=== PATIENT | female | born 1955 | race Asian ===

== ENCOUNTER 2023-02-07 18:03 | Observation (INO) | payer MEDICARE, SELFPAY ==
[2023-02-07 18:04] VITALS: BP 245/91; PULSE 75; RESP 18; TEMP 36.6; O2SAT 96; BMI 25.0
--- NOTE | 2023-02-07 18:18 | ECG_ITS ---
APPROVED REPORT Exam: Resting ECG HR:70 bpm ECG Measurements Heart Rate 70 AXES NH 139 P 64 QRSd 94 QRS 95 QT 329 T 41 QTc 350 Conclusion SINUS RHYTHM POSSIBLE RIGHT ATRIAL ENLARGEMENT [0.25mV P-WAVE] LEFT ATRIAL ENLARGEMENT [-0.15mV P-WAVE IN V1/V2] BORDERLINE RIGHT AXIS DEVIATION [QRS AXIS > 90] NONSPECIFIC ST & T-WAVE ABNORMALITY ABNORMAL ECG UNCONFIRMED REPORT Electronically signed by : Delvin Wesley MD 02/08/2023 07:47:40
--- NOTE | 2023-02-07 18:18 | CT_ITS ---
PROCEDURE INFORMATION: Exam: CT Head Without Contrast Exam date and time: 02/07/2023 6:30 PM Age: 67 years old Clinical indication: Pain; Headache; Additional info: Headache, elevated BP TECHNIQUE: Imaging protocol: Computed tomography of the head without contrast. Radiation optimization: All CT scans at this facility use at least one of these dose optimization techniques: automated exposure control; mA and/or kV adjustment per patient size (includes targeted exams where dose is matched to clinical indication); or iterative reconstruction. REPORTING DATA: Count of CT and Cardiac NM exams in prior 12 months: This patient has received 0 known CTs and 0 known cardiac nuclear medicine studies in the 12 months prior to the current study. COMPARISON: No relevant prior studies available. FINDINGS: Brain: Normal. No hemorrhage. Unremarkable white matter. No mass effect. Cerebral ventricles: No ventriculomegaly. Paranasal sinuses: Visualized sinuses are unremarkable. No fluid levels. Mastoid air cells: Visualized mastoid air cells are well aerated. Bones/joints: Unremarkable. No acute fracture. Soft tissues: Unremarkable. IMPRESSION: No acute intracranial abnormality.
--- NOTE | 2023-02-07 18:18 | PC.NURSE ---
DR MORROW AT BEDSIDE AT THIS TIME
--- NOTE | 2023-02-07 18:18 | HMH.EDGENADL ---
Discharge Plan Disposition Patient Disposition: Admitted Condition: Fair Referrals Follow up/Referrals: Provider,Referral, [Primary Care Provider] - See instructions Clinical Impressions Clinical Impression: Hypokalemia, Headache, Hypertensive urgency Discharge ED Provider: Swati Aguayo Adult HPI General Chief complaint: Headache Stated complaint: headache, high blood pressure Time Seen by Provider: 02/07/23 18:10 Mode of Arrival: Ambulatory Source of Information: Patient Limitations: No Limitations History of Present Illness HPI narrative: 67-year-old female presenting to the emergency department with headache and high blood pressure. Symptoms started this morning after she woke up. She developed a dull, throbbing headache. Located all over her head. She checked her blood pressure and it was quite elevated, 190 systolic. She says she does not have a history of high blood pressure. Does not take antihypertensive medication. She has had episodes similar to this before, but none that have lasted this long. She does not sleep well, but denies changes to her sleep habits. Denies changes to diet or exercise. No new medications. She does not take any medications daily. No speech difficulty, vision changes. No numbness, weakness, tingling in arms or legs. No recent illness. No medications prior to arrival Related Data Allergies Allergy/AdvReac Type Severity Reaction Status Date / Time No Known Allergies Allergy Verified 02/07/23 18:35 [facility] Disclaimer: The information contained in this section may have been updated after the patient was seen, as this information can be updated by other users. Medical History (Updated 02/07/23 @ 19:48 by Swati Aguayo DO) Ovarian cyst Uterine polyp Family History (Updated 02/07/23 @ 18:24 by Eloise Kang RN) Other No significant family history Social History (Updated 02/07/23 @ 18:24 by Eloise Kang RN) Smoking Status: Never smoker alcohol intake: never current occupational status: retired Travel in the last 8 weeks: None ROS Obtained: Yes All systems reviewed & no additional complaints except as documented Constitutional Constitutional: Denies chills, Denies fever(s) and Reports headache(s) Eyes Eyes: Denies blind spots and Denies blurry vision ENT Ears, Nose, Mouth, and Throat: Reports headache(s) and Denies sore throat Cardiovascular Cardiovascular: Denies chest pain, Denies dyspnea, Denies edema and Denies palpitations Respiratory Respiratory: Denies cough and Denies dyspnea Gastrointestinal Gastrointestingal: Denies abdominal pain, nausea or vomiting Musculoskeletal Musculoskeletal: Denies arthralgias and Denies myalgias Integumentary/Breasts Skin/Breast: Denies redness and Denies rash Neurologic Neurologic: Reports headache(s) Endocrine Endocrine: Denies palpitations Physical Exam General General appearance: alert and in no apparent distress Head Head exam: atraumatic and normocephalic Eye Eye exam: Present normal appearance; Absent conjunctival redness ENT ENT exam: Present normal exam and mucous membranes moist Respiratory Respiratory exam: Present normal lung sounds bilaterally; Absent respiratory distress or wheezes Cardiovascular Cardiovascular exam: Present regular rate and normal rhythm Abdominal Exam Abdominal exam: Present soft; Absent distention or tenderness Neurological Exam Neurological exam: Present alert, oriented X3 and normal gait Psychiatric Psychiatric exam: Present normal affect and normal mood Skin Skin exam: Present warm and dry Medical Decision Making Medical Records Medical records reviewed: Yes I reviewed the patient's medical records. Per Inquiry Pt receiving controlled substance: No Vital Signs: 02/07/23 18:04 02/07/23 18:51 02/07/23 18:52 Temperature 97.8 F Temperature Source Oral Pulse Rate 85 Pulse Rate [Radial] 75 Respiratory Rate 18 17 Blood Pressu
--- NOTE | 2023-02-07 18:29 | PC.NURSE ---
PT TO CT
[2023-02-07 18:31] LABS: Basophils # 0.1 K/mm3 (0-0.2); Basophils % 0.8 % (0.1-2.0); Eosinophils # 0.2 K/mm3 (0.0-0.4); Eosinophils % 2.1 % (0.1-12.0); Hematocrit 46.2 % (37.0-47.0); Hemoglobin 15.2 g/dL (12.2-16.2); Lymphocytes # 1.9 K/mm3 (0.7-4.5); Lymphocytes % 26.4 % (10-50); Mean Corpuscular HGB Conc 32.8 g/dL (31.8-35.4); Mean Corpuscular Hemoglobin 28.9 pg (27.0-31.2); Mean Corpuscular Volume 87.9 fl (81-99); Mean Platelet Volume 10.8 fl (7.4-10.4); Monocytes # 0.3 K/mm3 (0.1-1.0); Monocytes % 4.2 % (1.7-9.3); Neutrophils # 4.7 K/mm3 (1.8-7.8); Neutrophils % 66.5 % (37.0-80.0); Platelet Count 188 K/mm3 (142-424); Red Blood Count 5.25 M/mm3 (4.20-5.40); Red Cell Distribution Width 13.2 % (11.5-17.5)
--- NOTE | 2023-02-07 18:32 | PC.NURSE ---
PT RETURNED FROM CT
[2023-02-07 18:35] LABS: Chloride 100 mmol/L (98-107); Sodium 144 mmol/L (136-145)
[2023-02-07 18:37] LABS: Blood Urea Nitrogen 7 mg/dl (7-17); Creatinine Clearance Estimated 52 mL/min (50-200)
[2023-02-07 18:38] LABS: Alanine Aminotransferase 31 U/L (12-78); Albumin Level 4.8 g/dl (3.5-5.0); Albumin/Globulin Ratio 1.5 (1.1-1.8); Alkaline Phosphatase 129 U/L (38-126); Anion Gap 14.5 mEq/L (5-15); Aspartate Amino Transferase 42 U/L (14-36); Bilirubin,Total 0.6 mg/dl (0.2-1.3); Calcium 9.5 mg/dl (8.4-10.2); Carbon Dioxide 32 mmol/L (22.0-30.0); Estimated Glomerular Filt Rate 71 ml/min (>60); GFR (African American) 86 ML/MIN (>60); Globulin 3.2 g/dL (1.3-3.2); Glucose 121 mg/dl (74-100)
--- NOTE | 2023-02-07 18:47 | PC.NURSE ---
per rad staff when he send CT vrad stating a approx 71 minute turn around time, notified ER
--- NOTE | 2023-02-07 18:49 | PC.NURSE ---
critical potassium called from lab- notified JAME QUINN
[2023-02-07 18:50] LABS: Potassium 2.5 mmoL/L (3.5-5.1); Troponin I < 0.01 ng/ml (0.00-0.034)
[2023-02-07 18:51] VITALS: BP 237/95; PULSE 85; RESP 17; O2SAT 99
[2023-02-07 18:52] VITALS: BP 211/110
--- NOTE | 2023-02-07 19:01 | PC.NURSE ---
REPEAT B/P 180/91 AFTER 10MG IV LABETALOL
--- NOTE | 2023-02-07 19:39 | PC.NURSE ---
Dr. Aguayo at
--- NOTE | 2023-02-07 19:47 | PC.NURSE ---
Registration notified of admission. Pt assigned to room 202 for HTN and Hypokalemia. Hospitalist. OBS
[2023-02-07 19:55] LABS: Coronavirus 19, PCR Not Detected (NotDetected); Influenza A, PCR Not Detected (NotDetected); Influenza B, PCR Not Detected (NotDetected)
[2023-02-07 20:08] VITALS: BP 154/82; PULSE 68; RESP 18; TEMP 36.7; O2SAT 97; BMI 24.5
--- NOTE | 2023-02-07 20:20 | XR_ITS ---
PROCEDURE INFORMATION: Exam: XR Chest Exam date and time: 02/07/2023 8:19 PM Age: 67 years old Clinical indication: Other: Hypertension; Additional info: New onset hypertension TECHNIQUE: Imaging protocol: Radiologic exam of the chest. Views: 2 views. COMPARISON: No relevant prior studies available. FINDINGS: Lungs: Mild hyperexpansion and hyperlucency with mild diaphragmatic flattening suggesting possible COPD. Pulmonary vasculature grossly normal. Slight interstitial prominence bilaterally, possibly chronic interstitial scarring or bronchitis, less likely interstitial edema or interstitial pneumonitis. No consolidations. There is a 7 mm indeterminate pulmonary nodule projecting in the left mid lung. Recommend nonemergent noncontrast chest CT for further characterization. Pleural spaces: No pleural effusion. No pneumothorax. Heart/Mediastinum: Heart size normal. No tracheal/mediastinal shift. Bones/joints: No acute osseous abnormalities are identified. IMPRESSION: 1. Mild nonspecific interstitial prominence. 2. Suspect COPD. 3. There is a 7 mm indeterminate pulmonary nodule in the left mid lung, recommend nonemergent noncontrast chest CT characterization.
--- NOTE | 2023-02-07 20:33 | PC.NURSE ---
report given to Keri MILIAN
--- NOTE | 2023-02-07 20:36 | PC.NURSE ---
pt requests a full discharge report with all labs and imaging
[2023-02-07 20:37] VITALS: BP 167/73; PULSE 65; RESP 14; TEMP 36.6; O2SAT 97
--- NOTE | 2023-02-07 20:47 | PC.NURSE ---
pt arrived to floor at this time
--- NOTE | 2023-02-07 20:50 | EXP.HP ---
History of Present Illness *Admission Date: 02/07/23 *Reason for visit:: headache, hypertension and hypokalemia *History of present illness: This is a 67-year-old female with no other significant medical history who presented to the emergency department with headache and high blood pressure new onset this morning after she woke up.? She developed a dull, throbbing headache. blood pressure and it was, 190 systolic after patient checked herself.? She says she does not have a history of high blood pressure.? Does not take antihypertensive medication.? She has had episodes similar to this before, but none that have lasted this long.? She does not sleep well, but denies changes to her sleep habits.? Denies changes to diet or exercise.? No new medications.? She does not take any medications daily.? No speech difficulty, vision changes.? No numbness, weakness, tingling in arms or legs.? No recent illness.? No medications prior to arrival. At ER chest x-ray was done, there is normal. EKG was done normal electrolytes was reviewed. Patient with mild hypokalemia. Will be admitted for further management and treatment. [facility] Disclaimer: The information contained in this section may have been updated after the patient was seen, as this information can be updated by other users. Medical History (Updated 02/07/23 @ 21:29 by Jose Eng APRN) Ovarian cyst Uterine polyp Family History (Updated 02/07/23 @ 18:24 by Eloise Kang RN) Other No significant family history Social History (Updated 02/07/23 @ 21:18 by Evita Fortune RN) Smoking Status: Never smoker alcohol intake: never current occupational status: retired Travel in the last 8 weeks: None Review of Systems Review of Systems Review of systems:: pertinent systems reviewed and negative unless documented below Constitutional Constitutional: Reports headache(s) ENT Ears, Nose, Mouth, and Throat: Reports headache(s) *Neurologic Neurologic: Reports headache(s) Meds Home Medications and Allergies Home Medications Medication Instructions Recorded Confirmed Type amlodipine 10 mg tablet 10 mg PO DAILY #90 tabs 02/08/23 Rx hydrochlorothiazide 25 mg tablet 25 mg PO DAILY #90 tabs 02/08/23 Rx potassium chloride 20 mEq 40 meq PO BID 2 days #8 tabs 02/08/23 Rx tablet,extended release(part/cryst) New Prescriptions to Start Prescriptions: amlodipine Mcrae,Hector hydrochlorothiazide Mcrae,Hector potassium chloride Mcrae,Bardolph Allergies Allergy/AdvReac Type Severity Reaction Status Date / Time No Known Allergies Allergy Verified 02/07/23 18:35 Exam Data for Last 24 hours Vital signs and Labs for Last 24 Hours: Temp Pulse Resp BP Pulse Ox 98 F 65 14 167/73 H 99 02/07/23 20:37 02/07/23 20:37 02/07/23 20:37 02/07/23 20:37 02/07/23 18:51 Laboratory Results - last 24 hr 02/07/23 18:22: WBC 7.0, RBC 5.25, Hgb 15.2, Hct 46.2, MCV 87.9, MCH 28.9, MCHC 32.8, RDW 13.2, Plt Count 188, MPV 10.8 H, Neut % (Auto) 66.5, Lymph % (Auto) 26.4, [place] % (Auto) 4.2, Eos % (Auto) 2.1, Baso % (Auto) 0.8, Neut # (Auto) 4.7, Lymph # (Auto) 1.9, [place] # (Auto) 0.3, Eos # (Auto) 0.2, Baso # (Auto) 0.1 02/07/23 18:22: Sodium 144, Potassium 2.5 L*, Chloride 100, Carbon Dioxide 32 H, Anion Gap 14.5, BUN 7, Creatinine 0.80, Estimated Creat Clear 52, Estimated GFR 71, Est GFR ( Amer) 86, Glucose 121 H, Calcium 9.5, Total Bilirubin 0.6, AST 42 H, ALT 31, Alkaline Phosphatase 129 H, Troponin I < 0.01, Total Protein 8.0, Albumin 4.8, Globulin 3.2, Albumin/Globulin Ratio 1.5 02/07/23 19:46: SARS-CoV-2 (PCR) Not detected, Influenza A Untype (PCR) Not detected, Influenza Type B (PCR) Not detected I & O for Last 24 hours: Intake & Output 02/04/23 02/05/23 02/06/23 02/07/23 23:59 23:59 23:59 23:59 Weight 62.142 kg Radiology Reports for the Last 24 Hours: Chest x-ray.
--- NOTE | 2023-02-07 21:10 | PC.NURSE ---
received phone report from minna bottom turner nurse at 2023. patient arrived at 2044 via w/c accompanied by family member. diagnosis: H/A and HTN. admitted to room. oriented to room and equipement.
[2023-02-07 21:49] VITALS: O2SAT 97
[2023-02-07 21:58] LABS: Troponin I 0.01 ng/ml (0.00-0.034)
[2023-02-08] VITALS: BP 197/76; PULSE 66; PULSE 67; RESP 18; TEMP 36.6; O2SAT 97
[2023-02-08 00:59] LABS: Troponin I 0.01 ng/ml (0.00-0.034)
--- NOTE | 2023-02-08 02:01 | PC.NURSE ---
SPOKE WITH SHANNA LOCKE RE BP 197/76. TO PUT IN PRN MED FOR HTN.
[2023-02-08 04:00] VITALS: BP 143/67; PULSE 55; RESP 18; TEMP 36.6; O2SAT 98; BMI 24.7
[2023-02-08 06:18] LABS: Chloride 103 mmol/L (98-107); Sodium 141 mmol/L (136-145)
[2023-02-08 06:20] LABS: Eosinophils # 0.1 K/mm3 (0.0-0.4); Mean Platelet Volume 10.9 fl (7.4-10.4); Red Cell Distribution Width 13.3 % (11.5-17.5)
[2023-02-08 06:21] LABS: Alanine Aminotransferase 25 U/L (12-78); Albumin Level 3.7 g/dl (3.5-5.0); Albumin/Globulin Ratio 1.5 (1.1-1.8); Alkaline Phosphatase 96 U/L (38-126); Anion Gap 12.6 mEq/L (5-15); Aspartate Amino Transferase 33 U/L (14-36); Bilirubin,Total 0.5 mg/dl (0.2-1.3); Blood Urea Nitrogen 7 mg/dl (7-17); Carbon Dioxide 28 mmol/L (22.0-30.0); Cholesterol 187 mg/dl (140-200); Creatinine Clearance Estimated 51 mL/min (50-200); Estimated Glomerular Filt Rate 83 ml/min (>60); GFR (African American) 100 ML/MIN (>60); Globulin 2.5 g/dL (1.3-3.2); Total Protein,Serum 6.2 g/dl (6.3-8.2); Triglycerides 94 mg/dl (30-150); VLDL Cholesterol 19 mg/dL (0-40)
[2023-02-08 06:22] LABS: Calcium 8.4 mg/dl (8.4-10.2); Chol/HDL Ratio 3.2 (1-3.5); Glucose 101 mg/dl (74-100); HDL Cholesterol 58 mg/dl (40-60)
[2023-02-08 06:29] LABS: Potassium 2.6 mmoL/L (3.5-5.1)
[2023-02-08 06:32] LABS: Direct LDL Cholesterol 96.46 mg/dL (100-129)
--- NOTE | 2023-02-08 06:32 | PC.NURSE ---
0630 lab called critical potassium of 2.6. SHANNA LOCKE NOTIFIED.
--- NOTE | 2023-02-08 06:36 | US_ITS ---
FINAL REPORT TECHNIQUE: Ultrasound images of the kidneys and bladder were obtained. CLINICAL HISTORY: hypertensive emergency FINDINGS: The right kidney measures 9 cm in length. It is normal in echogenicity. There is no hydronephrosis. The left kidney measures 9.3 cm in length. It is normal in echogenicity. There is no hydronephrosis. The portions of the liver and spleen which are visualized are unremarkable. IMPRESSION: No hydronephrosis Reviewed, Interpreted and Dictated by Luis Gibbs MD Transcribed by Aleksandra Dunaway Authenticated and [facility]
[2023-02-08 06:38] LABS: Basophils % 0.6 % (0.1-2.0); Eosinophils % 1.3 % (0.1-12.0); Hematocrit 39.6 % (37.0-47.0); Lymphocytes % 33.8 % (10-50); Mean Corpuscular HGB Conc 32.5 g/dL (31.8-35.4); Mean Corpuscular Hemoglobin 28.8 pg (27.0-31.2); Mean Corpuscular Volume 88.6 fl (81-99); Monocytes # 0.3 K/mm3 (0.1-1.0); Monocytes % 5.4 % (1.7-9.3); Neutrophils # 3.5 K/mm3 (1.8-7.8); Neutrophils % 58.8 % (37.0-80.0); Platelet Count 178 K/mm3 (142-424); Red Blood Count 4.47 M/mm3 (4.20-5.40); White Blood Count 5.9 K/mm3 (4.8-10.8)
[2023-02-08 06:39] LABS: Hemoglobin 12.9 g/dL (12.2-16.2)
[2023-02-08 06:49] LABS: Magnesium 1.9 mg/dl (1.6-2.3)
[2023-02-08 08:00] VITALS: PULSE 80
[2023-02-08 08:04] VITALS: BP 135/62; PULSE 75; RESP 18; TEMP 36.8; O2SAT 98
--- NOTE | 2023-02-08 11:26 | PC.NURSE ---
COURTESY ROUND PATIENT AWAKE SITTING ON SIDE OF BED . PATIENT VOICED NO NEEDS AT THIS TIME . ICE WATER REFILLED AND TRASH EMPTIED . CALL LIGHT WITHIN REACH.
[2023-02-08 12:00] VITALS: BP 125/73; PULSE 69; PULSE 73; RESP 16; TEMP 36.6; O2SAT 98
--- NOTE | 2023-02-08 14:33 | EXP.DC.SUM ---
General Admission date:: 02/07/23 Discharge date: 02/08/23 HPI HPI HPI: This is a 67-year-old female with no other significant medical history who presented to the emergency department with headache and high blood pressure new onset this morning after she woke up.? She developed a dull, throbbing headache. blood pressure and it was, 190 systolic after patient checked herself.? She says she does not have a history of high blood pressure.? Does not take antihypertensive medication.? She has had episodes similar to this before, but none that have lasted this long.? She does not sleep well, but denies changes to her sleep habits.? Denies changes to diet or exercise.? No new medications.? She does not take any medications daily.? No speech difficulty, vision changes.? No numbness, weakness, tingling in arms or legs.? No recent illness.? No medications prior to arrival. At ER chest x-ray was done, there is normal. EKG was done normal electrolytes was reviewed. Patient with mild hypokalemia. Will be admitted for further management and treatment. Hospital Course Hospital Course Hospital Course: Patient admitted to hospital with headache and noted to suffer from hypertensive emergency. Patient started on Cardene drip, which was weaned off quickly during hospitalization. 02/08/2023, patient placed on amlodipine 10 mg and hydrochlorothiazide 25 mg, with excellent control of blood pressure by 1400 on 02/08/23. Patient states that headache resolved once blood pressure normotensive. Patient given 80 mill equivalents potassium chloride during hospitalization. Patient discharged home on potassium chloride 40 mg twice daily x2 days to complete potassium repletion. Patient also advised to follow-up with primary care physician within 1 week of hospital discharge. Exam Data for Last 24 hours Vital signs and Labs for Last 24 Hours: Temp Pulse Resp BP Pulse Ox 97.8 F 73 16 125/73 98 02/08/23 12:00 02/08/23 12:00 02/08/23 12:00 02/08/23 12:00 02/08/23 12:00 Laboratory Results - last 24 hr 02/07/23 18:22: WBC 7.0, RBC 5.25, Hgb 15.2, Hct 46.2, MCV 87.9, MCH 28.9, MCHC 32.8, RDW 13.2, Plt Count 188, MPV 10.8 H, Neut % (Auto) 66.5, Lymph % (Auto) 26.4, [place] % (Auto) 4.2, Eos % (Auto) 2.1, Baso % (Auto) 0.8, Neut # (Auto) 4.7, Lymph # (Auto) 1.9, [place] # (Auto) 0.3, Eos # (Auto) 0.2, Baso # (Auto) 0.1 02/07/23 18:22: Sodium 144, Potassium 2.5 L*, Chloride 100, Carbon Dioxide 32 H, Anion Gap 14.5, BUN 7, Creatinine 0.80, Estimated Creat Clear 52, Estimated GFR 71, Est GFR ( Amer) 86, Glucose 121 H, Calcium 9.5, Total Bilirubin 0.6, AST 42 H, ALT 31, Alkaline Phosphatase 129 H, Troponin I < 0.01, Total Protein 8.0, Albumin 4.8, Globulin 3.2, Albumin/Globulin Ratio 1.5 02/07/23 19:46: SARS-CoV-2 (PCR) Not detected, Influenza A Untype (PCR) Not detected, Influenza Type B (PCR) Not detected 02/07/23 21:18: Troponin I 0.01 02/08/23 00:15: Troponin I 0.01 02/08/23 05:56: Magnesium 1.9 02/08/23 05:56: WBC 5.9, RBC 4.47, Hgb 12.9 D, Hct 39.6, MCV 88.6, MCH 28.8, MCHC 32.5, RDW 13.3, Plt Count 178, MPV 10.9 H, Neut % (Auto) 58.8, Lymph % (Auto) 33.8, [place] % (Auto) 5.4, Eos % (Auto) 1.3, Baso % (Auto) 0.6, Neut # (Auto) 3.5, Lymph # (Auto) 2.0, [place] # (Auto) 0.3, Eos # (Auto) 0.1, Baso # (Auto) 0.0 02/08/23 05:56: Sodium 141, Potassium 2.6 L*, Chloride 103, Carbon Dioxide 28, Anion Gap 12.6, BUN 7, Creatinine 0.70, Estimated Creat Clear 51, Estimated GFR 83, Est GFR ( Amer) 100, Glucose 101 H, Calcium 8.4, Total Bilirubin 0.5, AST 33, ALT 25, Alkaline Phosphatase 96, Total Protein 6.2 L, Albumin 3.7 D, Globulin 2.5, Albumin/Globulin Ratio 1.5, Triglycerides 94, Cholesterol 187, LDL Cholesterol Direct 96.46 L, VLDL Cholesterol 19, HDL Cholesterol 58, Cholesterol/HDL Ratio 3.2 I & O for Last 24 hours: Intake & Output 02/05/23 02/06/23 02/07/23 02/08/23 23:59 23:59 23:59 23:59 Intake Total 960 / 2039 1200 / 1200 Output Total 1 / 0 / 0 Balance
--- NOTE | 2023-02-08 15:47 | HMH.PHAINT1 ---
Pharmacy Intervention Comments: DISCHARGE MEDICATION COUNSELING PROVIDED. DISCUSSED THE FOLLOWING NEW MEDICATIONS: -AMLODIPINE (FOR BLOOD PRESSURE, TAKE DAILY, DIZZINESS/LIGHTHEADEDNESS, LOW BP, LOWER LIMB SWELLING POSSIBLE) -HYDROCHLOROTHIAZIDE (FOR BLOOD PRESSURE, DAILY, BEST TAKEN IN THE MORNING TO AVOID NOCTURIA, INCREASE IN URINATION POSSIBLE, DIZZINESS, LIGHTHEADEDNESS POSSIBLE) -POTASSIUM CHLORIDE (SUPPLEMENT, TWICE DAILY, TAKE WITH FOOD TO MINIMIZE GI DISCOMFORT, WATCH FOR MUSCLE PAIN/WEAKNESS, DIZZINESS, FLUTTERING IN CHEST) PATIENT VERBALIZED NO QUESTIONS AT THIS TIME.
--- NOTE | 2023-02-08 15:50 | PC.NURSE ---
Discussed medications and need for follow up appointment in 1 week with PCP to patient's . Explained someone needs to be monitoring her bloodwork and blood pressure closely and it would be beneficial to have a PCP here instead of going through her PCP in [place] which is their original plan. Verbalized understanding. Provided with lists of PCP here.
--- NOTE | 2023-02-09 13:40 | CARE MANAGER ---
Left message for post-discharge phone interview.
--- NOTE | 2023-02-10 11:49 | CARE MANAGER ---
Attempted to contact patient related to hospital discharge x2. No VM option. MAICOL Mcgraw
== END 2023-02-08 15:54 | disposition home or self-care (01) ==
LOC: ER 19:48 → 2ND 19:58
PROVIDERS: Nurse Practitioner Family; Admitting Provider Internal Medicine; Emergency Provider Emergency Medicine; PCP Internal Medicine; Visit Provider Internal Medicine
DX: I10 Essential (primary) hypertension (principal); E87.6 Hypokalemia; G44.209 Tension-type headache, unspecified, not intractable; I16.0 Hypertensive urgency; R51.9 Headache, unspecified; Z79.899 Other long term (current) drug therapy
CPT/HCPCS: G0378; 36415; 70450; 71046; 76770; 80053; 80061; 83735; 84484; 85025; 87636; 93005; 93306; 99285; C9803; U0003; U0005